=== PATIENT | female | born 1960 | race Caucasian/White ===

== ENCOUNTER → 2016-08-24 | Outpatient (CLI) | payer OTHER ==
--- NOTE | 2016-08-24 10:47 | REP ---
MR BRAIN WITHOUT CONTRAST: HISTORY: Ataxia. Punctate areas of increased signal intensity on T2-weighted images are present in the periventricular and subcortical white matter. This represents small vessel ischemic disease. There is no intraparenchymal hemorrhage, infarct, mass or midline shift. The sella turcica is partially empty. The ventricular system and cortical sulci are dilated consistent with minimal volume loss. There is no extracerebral collection. Mucosal thickening is present in the ethmoid and left maxillary sinuses. IMPRESSION: 1. Small vessel ischemic disease. 2. Minimal volume loss. Signed by Donnie Kee MD 08/24/2016 10:50 A
== END ==
LOC: M RAD 09:08
PROVIDERS: ATTEND Nurse Practitioner Adult Health
DX: R27.0 Ataxia, unspecified (principal); R29.6 Repeated falls; N31.9 Neuromuscular dysfunction of bladder, unspecified; R20.8 Other disturbances of skin sensation; R20.0 Anesthesia of skin

== ENCOUNTER → 2016-08-29 | Outpatient (REF) | payer OTHER ==
[2016-08-29 11:41] LABS: BLOOD UREA NITROGEN 12 MG/DL (7-18); CREATININE FOR GFR 0.89 MG/DL (0.55-1.02); GLOMERULAR FILTRATION RATE > 60.0 (>51)
[2016-08-29 11:48] LABS: VITAMIN B12 LEVEL 449 PG/ML
[2016-08-29 11:49] LABS: FOLATE > 24.0 NG/ML
[2016-09-01 00:08] LABS: Lyme Disease IgG/IgM Antibodie <0.91 ISR (0.00-0.90); Lyme Disease IgM Ab Quantitati <0.80 index (0.00-0.79); SJOGREN'S ANTI SS-A <0.2 AI (0.0-0.9); SJOGREN'S ANTI SS-B <0.2 AI (0.0-0.9)
== END ==
LOC: M LABNEURO 11:03
PROVIDERS: ATTEND Psychiatry & Neurology Neurology
DX: G35 Multiple sclerosis (principal); E11.9 Type 2 diabetes mellitus without complications; G36.0 Neuromyelitis optica [Devic]

== ENCOUNTER → 2016-11-06 | Outpatient (CLI) | payer OTHER ==
--- NOTE | 2016-11-06 10:22 | REP ---
CERVICAL SPINE: Three AP and lateral views of the cervical spine performed. There is no compression fracture. There is normal alignment and cervical lordosis. There is no prevertebral soft tissue swelling. There is mild spurring, disc space narrowing and subchondral sclerosis at C6-7. There is slight narrowing at C5-6 disc space. There are mild vascular calcifications in the left neck soft tissues, likely in the carotid artery. IMPRESSION: Degenerative changes as discussed above, most significantly at C6-7 level. Signed by Elvis Delgado MD 11/06/2016 04:22 P
--- NOTE | 2016-11-06 10:39 | REP ---
LUMBAR SPINE SERIES: Partial three views. HISTORY: Degenerative disc disease. No comparison imaging. FINDINGS: Lumbar vertebral body heights are preserved. Alignment is normal. There is mild disc space narrowing at the L4-5 disc space level consistent with some degree of degenerative disc disease. Pedicles and posterior elements are intact. Psoas margins and flank stripes are intact. There is no evidence of spondylolysis or spondylolisthesis. SI joints are unremarkable. Visualized bowel gas pattern is normal. IMPRESSION: Mild degenerative disc narrowing at L4-5. Otherwise negative. Signed by Jovan Valdes MD 11/06/2016 02:54 P
== END ==
LOC: M SMT 09:28
PROVIDERS: ATTEND Internal Medicine
DX: M51.36 Other intervertebral disc degeneration, lumbar region (principal); M50.322 Other cervical disc degeneration at C5-C6 level; M50.323 Other cervical disc degeneration at C6-C7 level

== ENCOUNTER → 2016-11-27 | Outpatient (CLI) | payer OTHER, MEDICAID ==
--- NOTE | 2016-11-27 10:24 | REPMRS ---
Patient History The patient states she has not had a clinical breast exam in over a year. Baseline manmmogram. Patient is postmenopausal. No known family history of cancer. Digital Woman Screen Mammo: November 27, 2016 - Exam #: [id number] Bilateral CC and MLO view(s) were taken. Technologist: Jayla Hinkle Technologist FINDINGS: There are scattered fibroglandular densities. There is no evidence of cancer on this mammogram. ASSESSMENT: BI-RADS/ACR category 2 mammogram. Benign finding(s). Recommendation Routine screening mammogram of both breasts in 1 year (for women over age 40). This mammogram was interpreted with the aid of an FDA-approved computer-aided dectection system. Electronically Signed By: Elvis Delgado MD 11/27/16 1024
--- NOTE | 2016-11-28 12:12 | DEXA ---
AP SPINE L1 - L4 0.796 -3.2 -2.9 LT FEMUR TOTAL 0.673 -2.7 -2.4 RT FEMUR TOTAL 0.669 -2.7 -2.4 TOTAL BODY TOTAL OTHER DUAL FEMUR FRAX* ASSESSMENT Risk factors: History of adult fracture, current smoker. 10 year probability of fracture Major osteoporotic fracture 18.5 % Hip fracture 6.4 % COMMENTS: There is osteoporosis of the spine and hips. FOLLOW-UP: Recommendation for the next bone density exam: 2 years. [facility]
== END ==
LOC: M WHC 09:43
PROVIDERS: ATTEND Nurse Practitioner Adult Health
DX: Z12.31 Encounter for screening mammogram for malignant neoplasm of breast (principal); M81.0 Age-related osteoporosis without current pathological fracture; Z78.0 Asymptomatic menopausal state

== ENCOUNTER → 2016-12-17 | Outpatient (REF) | payer OTHER, MEDICAID | LOC: M SMT 12:46 | PROVIDERS: ATTEND Nurse Practitioner Women's Health | DX: R33.9 Retention of urine, unspecified (principal) ==

== ENCOUNTER → 2017-01-03 | Outpatient (REF) | payer OTHER | LOC: M SMT 12:48 | PROVIDERS: ATTEND Nurse Practitioner Women's Health | DX: N39.0 Urinary tract infection, site not specified (principal) ==

== ENCOUNTER → 2017-02-14 | Outpatient (REF) | payer OTHER | LOC: M SMT 12:49 | PROVIDERS: ATTEND Specialist | DX: Z87.440 Personal history of urinary (tract) infections (principal) ==

== ENCOUNTER → 2017-10-23 | Outpatient (REF) | payer OTHER, SELFPAY ==
[2017-10-23 18:52] LABS: APPEARANCE, URINE HAZY (CLEAR); BACTERIA, URINE AUTO 1+ (NEGATIVE); BILIRUBIN, URINE AUTO NEGATIVE (NEGATIVE); BLOOD, URINE BLOOD NEGATIVE (NEGATIVE); COLOR, URINE YELLOW (YELLOW); GLUCOSE, URINE (UA) AUTO NEGATIVE (NEGATIVE); KETONE, URINE AUTO TRACE mg/dL (NEGATIVE); LEUKOCYTE ESTERASE, URINE AUTO TRACE (NEGATIVE); MUCUS, URINE SMALL (NEGATIVE); NITRITE, URINE AUTO NEGATIVE (NEGATIVE); PROTEIN, URINE AUTO NEGATIVE (NEGATIVE); RBC, URINE AUTO 3 /HPF (0-3); SPECIFIC GRAVITY URINE AUTO 1.018 (1.002-1.035); SQUAMOUS EPITHELIAL CELL UR AU 0 /HPF (0-6); UROBILINOGEN, URINE AUTO 0.2 mg/dL (0.0-2.0); WBC, URINE AUTO 14 /HPF (0-3)
== END ==
LOC: M SMT 17:33
DX: R30.0 Dysuria (principal)
CPT/HCPCS: 81001

== ENCOUNTER → 2019-04-13 | Outpatient (REF) | payer OTHER ==
[2019-04-13 13:52] LABS: ALBUMIN 3.6 GM/DL (3.2-5.2); ALT/SGPT 18 U/L (12-78); BILIRUBIN,TOTAL 0.3 MG/DL (0.2-1.0); BLOOD UREA NITROGEN 9 MG/DL (7-18); CARBON DIOXIDE LEVEL 27 MEQ/L (21-32); CHLORIDE LEVEL 110 MEQ/L (98-107); CREATININE FOR GFR 0.87 MG/DL (0.55-1.30); GLOMERULAR FILTRATION RATE > 60.0 (>51); GLUCOSE, FASTING 87 MG/DL (70-100); POTASSIUM SERUM 4.7 MEQ/L (3.5-5.1); SODIUM LEVEL 142 MEQ/L (136-145); TOTAL PROTEIN 6.8 GM/DL (6.4-8.2)
== END ==
LOC: M LABNEURO 10:26
PROVIDERS: ATTEND Psychiatry & Neurology Neurology
DX: N18.9 Chronic kidney disease, unspecified (principal)

== ENCOUNTER → 2020-03-08 | Outpatient (REF) | payer OTHER ==
[2020-04-11 06:26] LABS: APPEARANCE, URINE CLEAR (CLEAR); BACTERIA, URINE AUTO NEGATIVE (NEGATIVE); BILIRUBIN, URINE AUTO NEGATIVE (NEGATIVE); BLOOD, URINE BLOOD NEGATIVE (NEGATIVE); COLOR, URINE YELLOW (YELLOW); GLUCOSE, URINE (UA) AUTO NEGATIVE (NEGATIVE); KETONE, URINE AUTO NEGATIVE (NEGATIVE); LEUKOCYTE ESTERASE, URINE AUTO NEGATIVE (NEGATIVE); NITRITE, URINE AUTO NEGATIVE (NEGATIVE); PROTEIN, URINE AUTO NEGATIVE (NEGATIVE); RBC, URINE AUTO 0 /HPF (0-3); SPECIFIC GRAVITY URINE AUTO 1.011 (1.002-1.035); SQUAMOUS EPITHELIAL CELL UR AU 0 /HPF (0-6); UROBILINOGEN, URINE AUTO 0.2 mg/dL (0.0-2.0); WBC, URINE AUTO 0 /HPF (0-3)
== END ==
LOC: M SMT 10:38
PROVIDERS: ATTEND Nurse Practitioner Women's Health
DX: N39.0 Urinary tract infection, site not specified (principal)

== ENCOUNTER → 2020-09-02 | Outpatient (REF) | payer OTHER ==
[2020-09-02 17:58] LABS: APPEARANCE, URINE CLEAR (CLEAR); BACTERIA, URINE AUTO NEGATIVE (NEGATIVE); BILIRUBIN, URINE AUTO NEGATIVE (NEGATIVE); BLOOD, URINE BLOOD NEGATIVE (NEGATIVE); COLOR, URINE YELLOW (YELLOW); GLUCOSE, URINE (UA) AUTO NEGATIVE (NEGATIVE); KETONE, URINE AUTO NEGATIVE (NEGATIVE); LEUKOCYTE ESTERASE, URINE AUTO NEGATIVE (NEGATIVE); MUCUS, URINE SMALL (NEGATIVE); NITRITE, URINE AUTO NEGATIVE (NEGATIVE); PROTEIN, URINE AUTO NEGATIVE (NEGATIVE); RBC, URINE AUTO 1 /HPF (0-3); SPECIFIC GRAVITY URINE AUTO 1.013 (1.002-1.035); SQUAMOUS EPITHELIAL CELL UR AU 1 /HPF (0-6); UROBILINOGEN, URINE AUTO 0.2 mg/dL (0.0-2.0); WBC, URINE AUTO 3 /HPF (0-3)
== END ==
LOC: M SMT 16:49
PROVIDERS: ATTEND Nurse Practitioner Women's Health
DX: N39.0 Urinary tract infection, site not specified (principal)

== ENCOUNTER → 2021-02-27 | Outpatient (CLI) | payer OTHER ==
[2021-02-27 14:22] LABS: BASO # 0.1 10^3/uL (0.0-0.2); BASO % 0.7 % (0.0-1.0); EOS # 0.1 10^3/uL (0.0-0.5); EOS % 1.4 % (0.0-3.0); HEMATOCRIT 43.1 % (36.0-47.0); HEMOGLOBIN 14.5 g/dl (12.0-15.5); LYMPH # 3.2 10^3/uL (1.5-5.0); LYMPH % 31.6 % (24.0-44.0); MEAN CORPUSCULAR HEMOGLOBIN 33.2 pg (27.0-33.0); MEAN CORPUSCULAR HGB CONC 33.6 g/dl (32.0-36.5); MEAN CORPUSCULAR VOLUME 98.6 fl (80.0-96.0); MONO # 0.5 10^3/uL (0.0-0.8); MONO % 5.2 % (2.0-8.0); NEUTROPHILS # 6.1 10^3/uL (1.5-8.5); NEUTROPHILS % 60.7 % (36.0-66.0); PLATELET COUNT, AUTOMATED 302 10^3/uL (150-450); RED BLOOD COUNT 4.37 10^6/uL (4.00-5.40); WHITE BLOOD COUNT 10.1 10^3/uL (4.0-10.0)
[2021-02-27 14:39] LABS: RHEUMATOID FACTOR QUANT < 10.0 IU/ML (<15.0); TOTAL PROTEIN 6.9 GM/DL (6.4-8.2)
[2021-02-27 14:48] LABS: VITAMIN B12 LEVEL 428 PG/ML
[2021-02-27 15:33] LABS: FOLATE 19.7 NG/ML
[2021-02-27 15:44] LABS: ERYTHROCYTE SEDIMENTATION RATE 19 mm/hr (0-30)
[2021-02-28 12:45] LABS: ALBUMIN 3.92 GM/DL (3.29-5.55); ALBUMIN % 56.8 % (55.8-66.1); ALPHA-1-GLOBULINS 0.35 GM/DL (0.17-0.41); ALPHA-2-GLOBULINS 0.77 GM/DL (0.42-0.99); ALPHA-2-GLOBULINS % 11.1 % (7.1-11.8); BETA-1-GLOBULINS 0.38 GM/DL (0.28-0.60); BETA-1-GLOBULINS % 5.5 % (4.7-7.2); BETA-2-GLOBULINS 0.39 GM/DL (0.19-0.55); BETA-2-GLOBULINS % 5.6 % (3.2-6.5)
== END ==
LOC: M LAB 12:55
PROVIDERS: ATTEND Psychiatry & Neurology Neurology
DX: E11.9 Type 2 diabetes mellitus without complications (principal); G62.9 Polyneuropathy, unspecified; M19.90 Unspecified osteoarthritis, unspecified site; M54.2 Cervicalgia; M54.9 Dorsalgia, unspecified

== ENCOUNTER 2021-09-11 15:33 | Emergency (ER) | payer OTHER ==
[~2021-09-11] VITALS: Ht 160 cm; Wt 75.0 kg
[2021-09-11] MEDS ORDERED: TRAZ-189 (16:28)
[2021-09-11] MEDS ORDERED: DULO1CAP6 (16:28)
[2021-09-11] MEDS ORDERED: HYDR-3363 (16:28)
[2021-09-11] MEDS ORDERED: NITR-67 (16:28)
[2021-09-11] MEDS ORDERED: OMEP40CA5 (16:28)
[2021-09-11] MEDS ORDERED: TIZA10TA (16:28)
[2021-09-11] MEDS ORDERED: ALEN70TA82 (16:28)
[2021-09-11] MEDS ORDERED: NORCO, ANEXSIA 5/325MG TABLET (HYDROcodone/ACETAMINOPHEN) PO ONE (17:45)
[2021-09-11] MEDS ORDERED: HYDR-3713 PO (17:45)
[2021-09-11 18:54] VITALS: BP 150/82
== END 2021-09-11 18:55 | disposition home or self-care (01) ==
LOC: M ED 15:33
DX: S42.214A Unspecified nondisplaced fracture of surgical neck of right humerus, initial encounter for closed fracture (principal); W00.9XXA Unspecified fall due to ice and snow, initial encounter; Y92.099 Unspecified place in other non-institutional residence as the place of occurrence of the external cause; Y93.9 Activity, unspecified; Y99.9 Unspecified external cause status; M81.0 Age-related osteoporosis without current pathological fracture; K21.9 Gastro-esophageal reflux disease without esophagitis; F41.9 Anxiety disorder, unspecified; F17.200 Nicotine dependence, unspecified, uncomplicated

== ENCOUNTER → 2021-09-20 | Outpatient (CLI) | payer OTHER ==
[~2021-09-20] MED LIST: ALEN70TA82; DULO1CAP6; HYDR-3363; HYDR-3713 PO; NITR-67; OMEP40CA5; TIZA10TA; TRAZ-189
== END ==
LOC: M SOG 10:14
PROVIDERS: ATTEND Orthopaedic Surgery Hand Surgery
DX: S42.221A 2-part displaced fracture of surgical neck of right humerus, initial encounter for closed fracture (principal); M85.811 Other specified disorders of bone density and structure, right shoulder; X58.XXXA Exposure to other specified factors, initial encounter; Y92.9 Unspecified place or not applicable; Y93.9 Activity, unspecified; Y99.9 Unspecified external cause status

== ENCOUNTER → 2021-10-03 | Outpatient (CLI) | payer OTHER | LOC: M SOG 08:21 | PROVIDERS: ATTEND Orthopaedic Surgery Hand Surgery | DX: S42.201D Unspecified fracture of upper end of right humerus, subsequent encounter for fracture with routine healing (principal) ==

== ENCOUNTER → 2022-01-30 | Outpatient (REF) | payer OTHER ==
[2022-01-30 17:33] LABS: APPEARANCE, URINE HAZY (CLEAR); BACTERIA, URINE AUTO 1+ (NEGATIVE); BILIRUBIN, URINE AUTO NEGATIVE (NEGATIVE); BLOOD, URINE BLOOD NEGATIVE (NEGATIVE); COLOR, URINE YELLOW (YELLOW); GLUCOSE, URINE (UA) AUTO NEGATIVE (NEGATIVE); KETONE, URINE AUTO NEGATIVE (NEGATIVE); LEUKOCYTE ESTERASE, URINE AUTO 3+ (NEGATIVE); NITRITE, URINE AUTO NEGATIVE (NEGATIVE); PROTEIN, URINE AUTO NEGATIVE (NEGATIVE); RBC, URINE AUTO 1 /HPF (0-3); SPECIFIC GRAVITY URINE AUTO 1.005 (1.002-1.035); SQUAMOUS EPITHELIAL CELL UR AU 0 /HPF (0-6); UROBILINOGEN, URINE AUTO 0.2 mg/dL (0.0-2.0); WBC, URINE AUTO 55 /HPF (0-3)
== END ==
LOC: M SMT 16:59
PROVIDERS: ATTEND Nurse Practitioner Women's Health
DX: N30.00 Acute cystitis without hematuria (principal)

== ENCOUNTER → 2022-02-14 | Outpatient (REF) | payer OTHER ==
[2022-02-14 17:27] LABS: APPEARANCE, URINE CLEAR (CLEAR); BACTERIA, URINE AUTO NEGATIVE (NEGATIVE); BILIRUBIN, URINE AUTO NEGATIVE (NEGATIVE); BLOOD, URINE BLOOD NEGATIVE (NEGATIVE); CALCIUM OXALATE CRYSTALS SMALL; COLOR, URINE YELLOW (YELLOW); GLUCOSE, URINE (UA) AUTO NEGATIVE (NEGATIVE); KETONE, URINE AUTO NEGATIVE (NEGATIVE); LEUKOCYTE ESTERASE, URINE AUTO NEGATIVE (NEGATIVE); NITRITE, URINE AUTO NEGATIVE (NEGATIVE); PROTEIN, URINE AUTO NEGATIVE (NEGATIVE); RBC, URINE AUTO 0 /HPF (0-3); SPECIFIC GRAVITY URINE AUTO 1.012 (1.002-1.035); SQUAMOUS EPITHELIAL CELL UR AU 0 /HPF (0-6); UROBILINOGEN, URINE AUTO 0.2 mg/dL (0.0-2.0); WBC, URINE AUTO 1 /HPF (0-3)
== END ==
LOC: M SMT 16:37
PROVIDERS: ATTEND Nurse Practitioner Women's Health
DX: Z87.440 Personal history of urinary (tract) infections (principal)

== ENCOUNTER → 2022-07-17 | Outpatient (REF) | payer OTHER ==
[2022-07-17 14:52] LABS: APPEARANCE, URINE MANUAL CLEAR (CLEAR); COLOR, URINE MANUAL YELLOW (YELLOW)
[2022-07-17 14:53] LABS: BILIRUBIN, URINE MANUAL NEGATIVE (NEGATIVE); BLOOD URINE MANUAL TRACE (NEGATIVE); GLUCOSE, URINE (UA) MANUAL NEGATIVE (NEGATIVE); KETONE, URINE MANUAL NEGATIVE (NEGATIVE); LEUKOCYTE ESTERASE, URINE MAN POSITIVE (NEGATIVE); NITRITE, URINE MANUAL POSITIVE (NEGATIVE); PROTEIN, URINE MANUAL TRACE mg/dL (NEGATIVE); SPECIFIC GRAVITY,URINE MANUAL 1.015 (1.002-1.035); UROBILINOGEN, URINE MANUAL NORMAL (NORMAL)
[2022-07-17 15:23] LABS: CALCIUM OXALATE CRYSTALS,URINE SMALL AMOUNT /hpf; SQUAMOUS EPITHELIAL CELL URINE SMALL AMOUNT /hpf (SMALL AMT); WBC, URINE 40-50 /hpf (0-3)
[2022-07-17 15:24] LABS: BACTERIA, URINE LARGE AMOUNT; HYALINE CAST, URINE NONE SEEN /lpf (0-1)
== END ==
LOC: M SMT 12:58
PROVIDERS: ATTEND Nurse Practitioner Women's Health
DX: R30.0 Dysuria (principal)

== ENCOUNTER → 2022-08-07 | Outpatient (REF) | payer OTHER ==
[2022-08-07 18:48] LABS: APPEARANCE, URINE MANUAL HAZY (CLEAR); BILIRUBIN, URINE MANUAL NEGATIVE (NEGATIVE); BLOOD URINE MANUAL NEGATIVE (NEGATIVE); COLOR, URINE MANUAL YELLOW (YELLOW); GLUCOSE, URINE (UA) MANUAL NEGATIVE (NEGATIVE); KETONE, URINE MANUAL NEGATIVE (NEGATIVE); LEUKOCYTE ESTERASE, URINE MAN TRACE (NEGATIVE); NITRITE, URINE MANUAL NEGATIVE (NEGATIVE); PROTEIN, URINE MANUAL TRACE mg/dL (NEGATIVE); UROBILINOGEN, URINE MANUAL NORMAL (NORMAL)
[2022-08-07 19:17] LABS: AMORPHOUS SEDIMENT, URINE LARGE AMOUNT (NEGATIVE); BACTERIA, URINE NONE SEEN; HYALINE CAST, URINE NONE SEEN /lpf (0-1); RBC, URINE 0-1 /hpf (0-3); SQUAMOUS EPITHELIAL CELL URINE SMALL AMOUNT /hpf (SMALL AMT)
== END ==
LOC: M SMT 17:13
PROVIDERS: ATTEND Nurse Practitioner Women's Health
DX: Z87.440 Personal history of urinary (tract) infections (principal)

== ENCOUNTER → 2022-08-21 | Outpatient (CLI) | payer OTHER | LOC: M RAD 10:18 | PROVIDERS: ATTEND Nurse Practitioner Women's Health | DX: R33.9 Retention of urine, unspecified (principal); Z87.440 Personal history of urinary (tract) infections; Z90.5 Acquired absence of kidney ==

== ENCOUNTER → 2022-08-24 | Outpatient (REF) | payer OTHER ==
[2022-08-24 18:09] LABS: APPEARANCE, URINE MANUAL CLEAR (CLEAR); COLOR, URINE MANUAL LT YELLOW (YELLOW)
[2022-08-24 18:10] LABS: BILIRUBIN, URINE MANUAL NEGATIVE (NEGATIVE); GLUCOSE, URINE (UA) MANUAL NEGATIVE (NEGATIVE); KETONE, URINE MANUAL NEGATIVE (NEGATIVE); NITRITE, URINE MANUAL NEGATIVE (NEGATIVE); PROTEIN, URINE MANUAL NEGATIVE (NEGATIVE); SPECIFIC GRAVITY,URINE MANUAL 1.005 (1.002-1.035); UROBILINOGEN, URINE MANUAL NORMAL (NORMAL)
[2022-08-24 18:28] LABS: BLOOD URINE MANUAL NEGATIVE (NEGATIVE); LEUKOCYTE ESTERASE, URINE MAN NEGATIVE (NEGATIVE)
== END ==
LOC: M SMT 16:49
PROVIDERS: ATTEND Urology
DX: Z87.440 Personal history of urinary (tract) infections (principal)

== ENCOUNTER → 2022-12-31 | Outpatient (REF) | payer OTHER ==
[2022-12-31 14:48] LABS: APPEARANCE, URINE HAZY (CLEAR); BACTERIA, URINE AUTO 1+ (NEGATIVE); BILIRUBIN, URINE AUTO NEGATIVE (NEGATIVE); BLOOD, URINE BLOOD 1+ (NEGATIVE); COLOR, URINE YELLOW (YELLOW); GLUCOSE, URINE (UA) AUTO NEGATIVE (NEGATIVE); KETONE, URINE AUTO NEGATIVE (NEGATIVE); LEUKOCYTE ESTERASE, URINE AUTO 3+ (NEGATIVE); NITRITE, URINE AUTO POSITIVE (NEGATIVE); PROTEIN, URINE AUTO NEGATIVE (NEGATIVE); RBC, URINE AUTO 2 /HPF (0-3); SPECIFIC GRAVITY URINE AUTO 1.008 (1.002-1.035); SQUAMOUS EPITHELIAL CELL UR AU 0 /HPF (0-6); UROBILINOGEN, URINE AUTO 0.2 mg/dL (0.0-2.0); WBC, URINE AUTO 78 /HPF (0-3)
== END ==
LOC: M SMT 13:00
PROVIDERS: ATTEND Physician Assistant
DX: R30.0 Dysuria (principal)

== ENCOUNTER → 2023-03-08 | Outpatient (REF) | payer OTHER ==
[2023-03-08 18:33] LABS: APPEARANCE, URINE CLOUDY (CLEAR); BACTERIA, URINE AUTO 2+ (NEGATIVE); BILIRUBIN, URINE AUTO NEGATIVE (NEGATIVE); BLOOD, URINE BLOOD NEGATIVE (NEGATIVE); COLOR, URINE AMBER (YELLOW); GLUCOSE, URINE (UA) AUTO NEGATIVE (NEGATIVE); KETONE, URINE AUTO TRACE mg/dL (NEGATIVE); LEUKOCYTE ESTERASE, URINE AUTO 3+ (NEGATIVE); MUCUS, URINE SMALL (NEGATIVE); NITRITE, URINE AUTO POSITIVE (NEGATIVE); PROTEIN, URINE AUTO NEGATIVE (NEGATIVE); RBC, URINE AUTO 4 /HPF (0-3); SPECIFIC GRAVITY URINE AUTO 1.017 (1.002-1.035); SQUAMOUS EPITHELIAL CELL UR AU 1 /HPF (0-6); WBC, URINE AUTO TNTC /HPF (0-3)
== END ==
LOC: M LABSMT 13:51
PROVIDERS: ATTEND Urology
DX: R39.9 Unspecified symptoms and signs involving the genitourinary system (principal)

== ENCOUNTER → 2023-09-12 | Outpatient (REF) | payer OTHER ==
[2023-09-12 14:04] LABS: APPEARANCE, URINE CLEAR (CLEAR); BACTERIA, URINE AUTO NEGATIVE (NEGATIVE); BILIRUBIN, URINE AUTO NEGATIVE (NEGATIVE); BLOOD, URINE BLOOD NEGATIVE (NEGATIVE); COLOR, URINE YELLOW (YELLOW); GLUCOSE, URINE (UA) AUTO NEGATIVE (NEGATIVE); KETONE, URINE AUTO NEGATIVE (NEGATIVE); LEUKOCYTE ESTERASE, URINE AUTO TRACE (NEGATIVE); MUCUS, URINE SMALL (NEGATIVE); NITRITE, URINE AUTO NEGATIVE (NEGATIVE); PROTEIN, URINE AUTO NEGATIVE (NEGATIVE); RBC, URINE AUTO 2 /HPF (0-3); SPECIFIC GRAVITY URINE AUTO 1.016 (1.002-1.035); SQUAMOUS EPITHELIAL CELL UR AU 0 /HPF (0-6); WBC, URINE AUTO 5 /HPF (0-3)
== END ==
LOC: M SMT 13:18
PROVIDERS: ATTEND Urology
DX: R39.9 Unspecified symptoms and signs involving the genitourinary system (principal)

== ENCOUNTER → 2023-10-22 | Outpatient (REF) | payer OTHER ==
[~2023-10-22] MED LIST changes: +ALEN70TA82 PO; +AZEL0.05 OU; +DULO60CA35 PO; +EZET10TA58 PO; +FAMO1TAB11 PO; +GABA-282 PO; +MELO7.5T35 PO; +MULTCHW12 PO; +PANT20TA6 PO; +SYST1SOL4 OU; +TIZA10TA PO; +TRAZ-189 PO
[2023-10-22 17:55] LABS: APPEARANCE, URINE HAZY (CLEAR); BACTERIA, URINE AUTO 1+ (NEGATIVE); BILIRUBIN, URINE AUTO NEGATIVE (NEGATIVE); BLOOD, URINE BLOOD NEGATIVE (NEGATIVE); COLOR, URINE AMBER (YELLOW); GLUCOSE, URINE (UA) AUTO NEGATIVE (NEGATIVE); KETONE, URINE AUTO TRACE mg/dL (NEGATIVE); LEUKOCYTE ESTERASE, URINE AUTO TRACE (NEGATIVE); MUCUS, URINE SMALL (NEGATIVE); NITRITE, URINE AUTO NEGATIVE (NEGATIVE); PROTEIN, URINE AUTO NEGATIVE (NEGATIVE); RBC, URINE AUTO 2 /HPF (0-3); SPECIFIC GRAVITY URINE AUTO 1.023 (1.002-1.035); SQUAMOUS EPITHELIAL CELL UR AU 1 /HPF (0-6); WBC, URINE AUTO 7 /HPF (0-3)
== END ==
LOC: M SMT 17:05
PROVIDERS: ATTEND Urology
DX: N39.0 Urinary tract infection, site not specified (principal)

== ENCOUNTER 2023-10-23 18:14 | Inpatient (IN) | payer OTHER ==
[~2023-10-23] VITALS: Ht 162.6 cm; Wt 62.1 kg
[~2023-10-23 18:14] MED LIST changes: -ALEN70TA82 PO; -AZEL0.05 OU; -DULO60CA35 PO; -EZET10TA58 PO; -FAMO1TAB11 PO; -GABA-282 PO; -MELO7.5T35 PO; -MULTCHW12 PO; -PANT20TA6 PO; -SYST1SOL4 OU; -TIZA10TA PO; -TRAZ-189 PO
[2023-10-23] MEDS: MORPHINE 4 MG/ML 1ML VIAL IV PRN (20:18)
[2023-10-23] MEDS: diazePAM 10MG/2ML SYRINGE IV ONE (20:49)
[2023-10-23 21:08] LABS: BASO # 0.1 10^3/uL (0.0-0.2); BASO % 0.4 % (0.0-1.0); EOS # 0.1 10^3/uL (0.0-0.5); EOS % 0.5 % (0.0-3.0); HEMATOCRIT 39.9 % (36.0-47.0); LYMPH # 2.3 10^3/uL (1.5-5.0); LYMPH % 11.7 % (24.0-44.0); MEAN CORPUSCULAR HEMOGLOBIN 33.8 pg (27.0-33.0); MEAN CORPUSCULAR HGB CONC 35.1 g/dl (32.0-36.5); MEAN CORPUSCULAR VOLUME 96.4 fl (80.0-96.0); MONO # 0.8 10^3/uL (0.0-0.8); MONO % 4.1 % (2.0-8.0); NEUTROPHILS # 15.9 10^3/uL (1.5-8.5); NEUTROPHILS % 82.7 % (36.0-66.0); PLATELET COUNT, AUTOMATED 251 10^3/uL (150-450); RED BLOOD COUNT 4.14 10^6/uL (4.00-5.40); WHITE BLOOD COUNT 19.2 10^3/uL (4.0-10.0)
[2023-10-23 21:19] LABS: INR 1.02; PARTIAL THROMBOPLASTIN TIME 25.8 SECONDS (24.8-34.2); PROTHROMBIN TIME 13.1 SECONDS (12.5-14.5)
[2023-10-23 21:30] LABS: ALBUMIN 3.5 G/DL (3.2-5.2); ALKALINE PHOSPHATASE 66 U/L (46-116); ALT/SGPT 17 U/L (7.0-40); AST/SGOT 24 U/L (<34); BILIRUBIN,DIRECT 0.2 MG/DL (<0.4); BILIRUBIN,TOTAL 0.5 MG/DL (0.3-1.2); BLOOD UREA NITROGEN 15 MG/DL (9-23); CALCIUM LEVEL 8.9 MG/DL (8.3-10.6); CARBON DIOXIDE LEVEL 24 MMOL/L (20-31); CHLORIDE LEVEL 109 MMOL/L (98-107); CREATININE FOR GFR 0.71 MG/DL (0.55-1.30); GLOMERULAR FILTRATION RATE > 60.0 (>45); GLUCOSE, FASTING 108 MG/DL (74-106); POTASSIUM SERUM 3.8 MMOL/L (3.5-5.1); SODIUM LEVEL 138 MMOL/L (136-145); TOTAL PROTEIN 6.5 G/DL (5.7-8.2)
[2023-10-23 21:48] LABS: RSV AMPLIFICATION NEGATIVE (NEGATIVE)
[2023-10-23] MEDS ORDERED: ONDANSETRON 4MG 2ML VIAL IV PRN (22:40)
[2023-10-23] MEDS ORDERED: ALBUTEROL SULFATE 2.5MG/0.5ML INH NEB SOLN NEB PRN (22:40)
[2023-10-23] MEDS ORDERED: PANT20TA6 PO (23:04)
[2023-10-23] MEDS ORDERED: GABA-282 PO (23:04)
[2023-10-23] MEDS ORDERED: ALEN70TA82 PO (23:04)
[2023-10-23] MEDS ORDERED: EZET10TA58 PO (23:04)
[2023-10-23] MEDS ORDERED: FAMO1TAB11 PO (23:04)
[2023-10-23] MEDS ORDERED: TIZA10TA PO (23:04)
[2023-10-23] MEDS ORDERED: DULO60CA35 PO (23:04)
[2023-10-23] MEDS ORDERED: TRAZ-189 PO (23:04)
[2023-10-23] MEDS ORDERED: AZEL0.05 OU (23:04)
[2023-10-23] MEDS ORDERED: MELO7.5T35 PO (23:04)
[2023-10-23] MEDS ORDERED: SYST1SOL4 OU (23:04)
[2023-10-23] MEDS ORDERED: MULTCHW12 PO (23:07)
[2023-10-23] MEDS ORDERED: HOME MED LIST COMPLETE! XX SCH (23:10)
[2023-10-23] MEDS ORDERED: GABAPENTIN 300 MG CAP PO PRN (23:50)
[2023-10-24] MEDS: LR 1,000 ML IV SCH (00:33)
[2023-10-24] MEDS: ALBUTEROL SULFATE 2.5MG/0.5ML INH NEB SOLN NEB SCH (00:33)
[2023-10-24] MEDS: HYDROMORPHONE HCL 0.5 MG/ 0.5 ML SYRINGE IV PRN (00:38)
[2023-10-24] MEDS: ACETAMINOPHEN 500 MG TAB PO SCH (06:00)
[2023-10-24] MEDS ORDERED: CYCLOBENZAPRINE 5MG TABLET PO PRN (07:05)
[2023-10-24] MEDS ORDERED: MORPHINE 4 MG/ML 1ML VIAL IV PRN (07:05)
[2023-10-24] MEDS: LIDOCAINE 5% (LIDODERM) PATCH TD SCH (07:24)
[2023-10-24] MEDS: PANTOPRAZOLE 20 MG TAB PO SCH (07:24)
[2023-10-24 07:37] LABS: TOTAL 25(OH) VITAMIN D 51.8 NG/ML (20.0-100.0)
[2023-10-24] MEDS: KETOROLAC 30 MG/ML 1ML VIAL IV SCH (07:55)
[2023-10-24] MEDS: KETOROLAC 30 MG/ML 1ML VIAL IV PRN (07:56)
[2023-10-24] MEDS ORDERED: PANTOPRAZOLE 20 MG TAB PO SCH (09:00)
[2023-10-24 14:25] VITALS: BP 137/71; TEMP 99.5; O2SAT 95
[2023-10-24] MEDS: PERCOCET 5MG/325MG TAB PO PRN (15:05)
[2023-10-24] MEDS: ceFAZolin 2 GM/D5W 50 ML IV BAG As Ordered ONE (16:13)
[2023-10-24] MEDS: TRANEXAMIC ACID 100 MG/ML 10ML VIAL As Ordered ONE (16:21)
[2023-10-24] MEDS ORDERED: fentaNYL 100 MCG/2 ML INJECTION As Ordered ONE (16:23)
[2023-10-24] MEDS ORDERED: ROCURONIUM BROMIDE 50MG/5ML VIAL As Ordered ONE (16:23)
[2023-10-24] MEDS ORDERED: dexmedeTOMIDine (4MCG/ML)200MCG/50ML BTL (PRECEDEX) As Ordered ONE (16:23)
[2023-10-24] MEDS ORDERED: propofoL 200 MG/20 ML VIAL As Ordered ONE (16:23)
[2023-10-24] MEDS ORDERED: SUGAMMADEX SODIUM 500 MG/5 ML VIAL (BRIDION) As Ordered ONE (16:23)
[2023-10-24] MEDS ORDERED: LIDOCAINE 2% 100MG/5ML SDV (FOR ANES.) As Ordered ONE (16:23)
[2023-10-24] MEDS ORDERED: ONDANSETRON 4MG 2ML VIAL As Ordered ONE (16:23)
[2023-10-24] MEDS ORDERED: MIDAZOLAM INJ 2MG/2ML VIAL As Ordered ONE (16:23)
[2023-10-24] MEDS ORDERED: ACETAMINOPHEN 1000MG 100ML IV BAG As Ordered ONE (16:31)
[2023-10-24] MEDS ORDERED: HYDROmorphone HCL 2MG/ML 1ML VIAL As Ordered ONE (16:41)
[2023-10-24] MEDS ORDERED: ePHEDrine SULFATE 25 MG/5 ML(5MG/ML) SYRINGE As Ordered ONE (18:39)
[2023-10-24] MEDS ORDERED: PHENYLephrine 500MCG 5ML (100MCG/ML) SYRINGE As Ordered ONE (18:39)
[2023-10-24] MEDS: VANCOMYCIN 1000MG/20ML VIAL As Ordered ONE (18:43)
[2023-10-24] MEDS ORDERED: HYDROMORPHONE HCL 0.5 MG/ 0.5 ML SYRINGE IV PRN (18:55)
[2023-10-24] MEDS ORDERED: ONDANSETRON 4MG 2ML VIAL IV PRN (18:55)
[2023-10-24] MEDS ORDERED: oxyCODONE 5MG TAB PO PRN (18:55)
[2023-10-24] MEDS ORDERED: LR 1,000 ML IV SCH (18:55)
[2023-10-24] MEDS ORDERED: fentaNYL 100 MCG/2 ML INJECTION IV PRN (18:55)
[2023-10-24 20:00] VITALS: BP 120/62; TEMP 98.4; O2SAT 86
[2023-10-24] MEDS: EZETIMIBE 10MG TABLET (ZETIA) PO SCH (20:21)
[2023-10-24] MEDS: traZODone 100 MG TAB PO SCH (20:22)
[2023-10-24] MEDS: DULoxetine 30MG CAPSULE (CYMBALTA) PO SCH (20:22)
[2023-10-24 20:30] VITALS: BP 117/73; TEMP 98; O2SAT 92
[2023-10-24 21:00] VITALS: BP 118/68; TEMP 98.2; O2SAT 95
[2023-10-24 22:00] VITALS: BP 106/60; TEMP 98.1; O2SAT 94
[2023-10-24] MEDS: ceFAZolin SOD 2 GM in IV 1 EA IV SCH (23:31)
[2023-10-25] VITALS (9 sets, daily range): BP systolic 88–133; BP diastolic 54–68; TEMP 97.1–99.3; O2SAT 92–99
[2023-10-25 08:34] LABS: HEMATOCRIT 28.4 % (36.0-47.0); MEAN CORPUSCULAR HEMOGLOBIN 33.8 pg (27.0-33.0); MEAN CORPUSCULAR HGB CONC 33.1 g/dl (32.0-36.5); MEAN CORPUSCULAR VOLUME 102.2 fl (80.0-96.0); PLATELET COUNT, AUTOMATED 169 10^3/uL (150-450); RED BLOOD COUNT 2.78 10^6/uL (4.00-5.40); WHITE BLOOD COUNT 12.2 10^3/uL (4.0-10.0)
[2023-10-25 08:35] LABS: HEMOGLOBIN 9.4 g/dl (12.0-15.5)
[2023-10-25 08:48] LABS: BLOOD UREA NITROGEN 15 MG/DL (9-23); CALCIUM LEVEL 7.7 MG/DL (8.3-10.6); CARBON DIOXIDE LEVEL 28 MMOL/L (20-31); CHLORIDE LEVEL 107 MMOL/L (98-107); CREATININE FOR GFR 0.67 MG/DL (0.55-1.30); GLOMERULAR FILTRATION RATE > 60.0 (>45); GLUCOSE, FASTING 135 MG/DL (74-106); POTASSIUM SERUM 3.8 MMOL/L (3.5-5.1); SODIUM LEVEL 141 MMOL/L (136-145)
[2023-10-25] MEDS ORDERED: RIVAROXABAN 10MG TAB (XARELTO) PO SCH (09:00)
[2023-10-25 12:37] LABS: HEMATOCRIT 30.3 % (36.0-47.0); HEMOGLOBIN 10.2 g/dl (12.0-15.5); MEAN CORPUSCULAR HGB CONC 33.7 g/dl (32.0-36.5); PLATELET COUNT, AUTOMATED 189 10^3/uL (150-450); WHITE BLOOD COUNT 13.6 10^3/uL (4.0-10.0)
[2023-10-25] MEDS: ceFAZolin SOD 2 GM in IV 1 EA IV SCH (13:20)
[2023-10-25] MEDS: LR 1,000 ML IV ONE (17:45)
[2023-10-25 22:32] LABS: HEMATOCRIT 25.2 % (36.0-47.0); HEMOGLOBIN 8.5 g/dl (12.0-15.5)
[2023-10-26 02:00] VITALS: BP 105/58; TEMP 98.6; O2SAT 97
[2023-10-26] MEDS: tiZANidine 4 MG TAB PO PRN (02:19)
[2023-10-26] MEDS: MYCOLOG CREAM 15GM (NYSTATIN/TRIAMCINOLONE) EXT SCH (02:19)
[2023-10-26 05:39] VITALS: BP 109/58; TEMP 98.8; O2SAT 94
[2023-10-26 06:18] LABS: HEMOGLOBIN 8.7 g/dl (12.0-15.5); MEAN CORPUSCULAR HEMOGLOBIN 34.1 pg (27.0-33.0); MEAN CORPUSCULAR HGB CONC 33.5 g/dl (32.0-36.5); PLATELET COUNT, AUTOMATED 159 10^3/uL (150-450); RED BLOOD COUNT 2.55 10^6/uL (4.00-5.40); WHITE BLOOD COUNT 9.9 10^3/uL (4.0-10.0)
[2023-10-26 06:40] LABS: ALBUMIN 2.3 G/DL (3.2-5.2); ALKALINE PHOSPHATASE 48 U/L (46-116); ALT/SGPT 10 U/L (7.0-40); AST/SGOT 30 U/L (<34); BILIRUBIN,TOTAL 0.4 MG/DL (0.3-1.2); BLOOD UREA NITROGEN 10 MG/DL (9-23); CALCIUM LEVEL 7.9 MG/DL (8.3-10.6); CARBON DIOXIDE LEVEL 30 MMOL/L (20-31); CHLORIDE LEVEL 109 MMOL/L (98-107); CREATININE FOR GFR 0.71 MG/DL (0.55-1.30); GLOMERULAR FILTRATION RATE > 60.0 (>45); GLUCOSE, FASTING 92 MG/DL (74-106); MAGNESIUM LEVEL 1.7 MG/DL (1.8-2.4); POTASSIUM SERUM 4.1 MMOL/L (3.5-5.1); SODIUM LEVEL 142 MMOL/L (136-145); TOTAL PROTEIN 4.6 G/DL (5.7-8.2)
[2023-10-26 08:25] LABS: PERCENT SATURATION 8.2 % (13.2-45.0)
[2023-10-26 08:28] LABS: FOLATE 15.58 NG/ML (>5.4)
[2023-10-26] MEDS ORDERED: LIDO5TD TD (09:30)
[2023-10-26] MEDS ORDERED: OXYC1TAB23 PO (09:30)
[2023-10-26] MEDS ORDERED: BACTDSTA PO (09:30)
[2023-10-26] MEDS ORDERED: FERR325T3 PO (09:33)
[2023-10-26] MEDS ORDERED: ASPI-655 PO (09:33)
[2023-10-26 09:57] LABS: FERRITIN 183.2 NG/ML (7.3-270.7)
[2023-10-26] MEDS: BACTRIM 160MG/800MG DS TAB PO SCH (10:06)
[2023-10-26] MEDS: MAGNESIUM OXIDE 400MG TAB (MAG-OX) PO SCH (10:07)
[2023-10-26 10:39] VITALS: BP 105/60; TEMP 98.8; O2SAT 96
[2023-10-26 10:45] VITALS: BP 105/59; TEMP 99; O2SAT 92
[2023-10-26 10:53] VITALS: BP 101/56; TEMP 98.4; O2SAT 92
[2023-10-26 11:41] VITALS: BP 107/65; TEMP 98.8; O2SAT 97
[2023-10-26] MEDS: FERRIC CARBOXYMALTOSE INJ 750 MG, VIAL MATE ADAPTER 1 EACH in NS 250 ML IV ONE (12:47)
[2023-10-26 14:04] LABS: HEMATOCRIT 29.7 % (36.0-47.0); MEAN CORPUSCULAR HGB CONC 33.7 g/dl (32.0-36.5); PLATELET COUNT, AUTOMATED 143 10^3/uL (150-450); RED BLOOD COUNT 3.03 10^6/uL (4.00-5.40); WHITE BLOOD COUNT 10.9 10^3/uL (4.0-10.0)
== END 2023-10-26 15:03 | disposition home health service (06) | DRG 301 ==
LOC: M ED 18:14 → EDBD 18:14 → M ED INP 22:38 → ENRESERV 10-24 13:47 → M MSPAV 10-24 14:19
PROVIDERS: ADMIT Internal Medicine; ATTEND Student in an Organized Health Care Education/Training Program
PROC: 0SRR0J9 Replacement of Right Hip Joint, Femoral Surface with Synthetic Substitute, Cemented, Open Approach (ICD-10-PCS; 2023-10-24)
PROC: 30233N1 Transfusion of Nonautologous Red Blood Cells into Peripheral Vein, Percutaneous Approach (ICD-10-PCS; principal; 2023-10-26)
DX: S72.001A Fracture of unspecified part of neck of right femur, initial encounter for closed fracture (principal); N31.2 Flaccid neuropathic bladder, not elsewhere classified; D62 Acute posthemorrhagic anemia; E78.5 Hyperlipidemia, unspecified; F17.210 Nicotine dependence, cigarettes, uncomplicated; M81.0 Age-related osteoporosis without current pathological fracture; N39.0 Urinary tract infection, site not specified; B96.1 Klebsiella pneumoniae [K. pneumoniae] as the cause of diseases classified elsewhere; L29.0 Pruritus ani; T49.0X5A Adverse effect of local antifungal, anti-infective and anti-inflammatory drugs, initial encounter; M54.9 Dorsalgia, unspecified; K21.9 Gastro-esophageal reflux disease without esophagitis; W01.0XXA Fall on same level from slipping, tripping and stumbling without subsequent striking against object, initial encounter; Y92.9 Unspecified place or not applicable; Y93.K1 Activity, walking an animal; G89.29 Other chronic pain; G47.00 Insomnia, unspecified; Z79.899 Other long term (current) drug therapy; Z90.5 Acquired absence of kidney; Z11.52 Encounter for screening for COVID-19

== ENCOUNTER → 2023-12-04 | Outpatient (CLI) | payer OTHER ==
[~2023-12-04] MED LIST changes: +ALEN70TA82 PO; +ASPI-655 PO; +AZEL0.05 OU; +BACTDSTA PO; +DULO60CA35 PO; +EZET10TA58 PO; +FAMO1TAB11 PO; +FERR325T3 PO; +GABA-282 PO; +LIDO5TD TD; +MELO7.5T35 PO; +MULTCHW12 PO; +OXYC1TAB23 PO; +PANT20TA6 PO; +SYST1SOL4 OU; +TIZA10TA PO; +TRAZ-189 PO
== END ==
LOC: M SOG 11:13
PROVIDERS: ATTEND Physician Assistant
DX: S72.001D Fracture of unspecified part of neck of right femur, subsequent encounter for closed fracture with routine healing (principal); Z96.641 Presence of right artificial hip joint

== ENCOUNTER → 2024-01-28 | Outpatient (REF) | payer OTHER ==
[~2024-01-28] MED LIST changes: +FLUTISP NARES; +LIDO1PAD TOP
[2024-01-28 10:57] LABS: APPEARANCE, URINE HAZY (CLEAR); BACTERIA, URINE AUTO NEGATIVE (NEGATIVE); BILIRUBIN, URINE AUTO NEGATIVE (NEGATIVE); BLOOD, URINE BLOOD NEGATIVE (NEGATIVE); COLOR, URINE AMBER (YELLOW); GLUCOSE, URINE (UA) AUTO NEGATIVE (NEGATIVE); KETONE, URINE AUTO TRACE mg/dL (NEGATIVE); LEUKOCYTE ESTERASE, URINE AUTO NEGATIVE (NEGATIVE); MUCUS, URINE SMALL (NEGATIVE); NITRITE, URINE AUTO NEGATIVE (NEGATIVE); PROTEIN, URINE AUTO NEGATIVE (NEGATIVE); RBC, URINE AUTO 1 /HPF (0-3); SPECIFIC GRAVITY URINE AUTO 1.018 (1.002-1.035); SQUAMOUS EPITHELIAL CELL UR AU 0 /HPF (0-6); WBC, URINE AUTO 1 /HPF (0-3)
== END ==
LOC: M SMT 10:00
PROVIDERS: ATTEND Urology
DX: R39.9 Unspecified symptoms and signs involving the genitourinary system (principal)

== ENCOUNTER → 2024-02-19 | Outpatient (CLI) | payer OTHER ==
[~2024-02-19] MED LIST changes: +SULF400T14
== END ==
LOC: M SOG 07:51
PROVIDERS: ATTEND Physician Assistant
DX: S72.001D Fracture of unspecified part of neck of right femur, subsequent encounter for closed fracture with routine healing (principal)

== ENCOUNTER → 2024-07-14 | Outpatient (REF) | payer OTHER ==
[~2024-07-14] MED LIST changes: +GABA-1172 PO; -GABA-282 PO
[2024-07-14 13:32] LABS: APPEARANCE, URINE HAZY (CLEAR); BACTERIA, URINE AUTO 1+ (NEGATIVE); BILIRUBIN, URINE AUTO NEGATIVE (NEGATIVE); BLOOD, URINE BLOOD NEGATIVE (NEGATIVE); COLOR, URINE YELLOW (YELLOW); GLUCOSE, URINE (UA) AUTO NEGATIVE (NEGATIVE); KETONE, URINE AUTO NEGATIVE (NEGATIVE); LEUKOCYTE ESTERASE, URINE AUTO 2+ (NEGATIVE); MUCUS, URINE SMALL (NEGATIVE); NITRITE, URINE AUTO POSITIVE (NEGATIVE); PROTEIN, URINE AUTO NEGATIVE (NEGATIVE); RBC, URINE AUTO 3 /HPF (0-3); SPECIFIC GRAVITY URINE AUTO 1.012 (1.002-1.035); SQUAMOUS EPITHELIAL CELL UR AU 0 /HPF (0-6); UROBILINOGEN, URINE AUTO 0.2 mg/dL (0.0-2.0); WBC, URINE AUTO 51 /HPF (0-3)
== END ==
LOC: M SMT 12:48
PROVIDERS: ATTEND Physician Assistant
DX: R30.0 Dysuria (principal)

== ENCOUNTER → 2024-08-03 | Outpatient (REF) | payer OTHER ==
[2024-08-03 13:35] LABS: APPEARANCE, URINE HAZY (CLEAR); BACTERIA, URINE AUTO 1+ (NEGATIVE); BILIRUBIN, URINE AUTO NEGATIVE (NEGATIVE); BLOOD, URINE BLOOD NEGATIVE (NEGATIVE); CALCIUM OXALATE CRYSTALS LARGE; COLOR, URINE AMBER (YELLOW); GLUCOSE, URINE (UA) AUTO NEGATIVE (NEGATIVE); KETONE, URINE AUTO TRACE mg/dL (NEGATIVE); LEUKOCYTE ESTERASE, URINE AUTO 2+ (NEGATIVE); MUCUS, URINE SMALL (NEGATIVE); NITRITE, URINE AUTO POSITIVE (NEGATIVE); PROTEIN, URINE AUTO NEGATIVE (NEGATIVE); RBC, URINE AUTO 0 /HPF (0-3); SPECIFIC GRAVITY URINE AUTO 1.016 (1.002-1.035); SQUAMOUS EPITHELIAL CELL UR AU 1 /HPF (0-6); UROBILINOGEN, URINE AUTO 0.2 mg/dL (0.0-2.0); WBC, URINE AUTO 42 /HPF (0-3)
== END ==
LOC: M SMT 12:53
PROVIDERS: ATTEND Physician Assistant
DX: R39.9 Unspecified symptoms and signs involving the genitourinary system (principal)

== ENCOUNTER → 2024-09-29 | Outpatient (CLI) | payer OTHER ==
[~2024-09-29] MED LIST changes: +DULO1CAP6 PO
== END ==
LOC: M RAD 10:19
PROVIDERS: ATTEND Registered Nurse
DX: R10.9 Unspecified abdominal pain (principal); Z96.641 Presence of right artificial hip joint; K42.9 Umbilical hernia without obstruction or gangrene; K57.30 Diverticulosis of large intestine without perforation or abscess without bleeding

== ENCOUNTER 2024-11-30 09:10 | Day surgery (SDC) | payer OTHER ==
[~2024-11-30] VITALS: Ht 162.6 cm; Wt 61.7 kg
[~2024-11-30 09:10] MED LIST changes: +DICY-61 PO
[2024-11-30] MEDS ORDERED: propofoL 200 MG/20 ML VIAL As Ordered ONE (09:22)
[2024-11-30] MEDS ORDERED: LIDOCAINE 2% 100MG/5ML SDV (FOR ANES.) As Ordered ONE (09:22)
[2024-11-30] MEDS ORDERED: GLYCOPYRROLATE INJ 0.2 MG/ML 2 ML VIAL As Ordered ONE (09:47)
[2024-11-30] MEDS ORDERED: ONDANSETRON 4MG 2ML VIAL As Ordered ONE (09:52)
[2024-11-30 11:27] VITALS: TEMP 97.6
[2024-11-30 11:44] VITALS: BP 121/86; O2SAT 99
== END 2024-11-30 11:49 | disposition home or self-care (01) ==
LOC: M OPP 09:10
PROVIDERS: ATTEND Internal Medicine Gastroenterology
DX: D12.2 Benign neoplasm of ascending colon (principal); K57.30 Diverticulosis of large intestine without perforation or abscess without bleeding; K64.8 Other hemorrhoids; R10.84 Generalized abdominal pain; R19.4 Change in bowel habit; K44.9 Diaphragmatic hernia without obstruction or gangrene; R14.0 Abdominal distension (gaseous); R19.7 Diarrhea, unspecified; Z79.51 Long term (current) use of inhaled steroids; Z79.899 Other long term (current) drug therapy; F17.210 Nicotine dependence, cigarettes, uncomplicated
CPT/HCPCS: 43239; 45385; 88305; J1596; J2405

== ENCOUNTER 2024-12-08 12:10 | Emergency (ER) | payer OTHER ==
[~2024-12-08] VITALS: Ht 162.6 cm; Wt 62.3 kg
[2024-12-08] MEDS: ACETAMINOPHEN 500 MG TAB PO ONE (13:51)
[2024-12-08 14:21] VITALS: BP 137/75; TEMP 98.4; O2SAT 98
== END 2024-12-08 14:28 | disposition home or self-care (01) ==
LOC: M ED 12:10
DX: S52.125A Nondisplaced fracture of head of left radius, initial encounter for closed fracture (principal); S52.615A Nondisplaced fracture of left ulna styloid process, initial encounter for closed fracture; W01.198A Fall on same level from slipping, tripping and stumbling with subsequent striking against other object, initial encounter; F17.200 Nicotine dependence, unspecified, uncomplicated; Y92.007 Garden or yard of unspecified non-institutional (private) residence as the place of occurrence of the external cause; Y93.89 Activity, other specified; Y99.9 Unspecified external cause status; Z79.899 Other long term (current) drug therapy; Z87.39 Personal history of other diseases of the musculoskeletal system and connective tissue

== ENCOUNTER → 2024-12-08 | Outpatient (CLI) | payer OTHER | LOC: M SOG 07:14 | PROVIDERS: ATTEND Orthopaedic Surgery | DX: S72.001D Fracture of unspecified part of neck of right femur, subsequent encounter for closed fracture with routine healing (principal) ==

== ENCOUNTER → 2024-12-09 | Outpatient (CLI) | payer OTHER | LOC: M SOG 07:00 | PROVIDERS: ATTEND Physician Assistant | DX: S72.001D Fracture of unspecified part of neck of right femur, subsequent encounter for closed fracture with routine healing (principal) ==

== ENCOUNTER → 2024-12-09 | Outpatient (REF) | payer OTHER ==
[2024-12-09 15:57] LABS: APPEARANCE, URINE HAZY (CLEAR); BACTERIA, URINE AUTO 1+ (NEGATIVE); BILIRUBIN, URINE AUTO NEGATIVE (NEGATIVE); BLOOD, URINE BLOOD NEGATIVE (NEGATIVE); CALCIUM OXALATE CRYSTALS SMALL; COLOR, URINE YELLOW (YELLOW); GLUCOSE, URINE (UA) AUTO NEGATIVE (NEGATIVE); KETONE, URINE AUTO TRACE mg/dL (NEGATIVE); LEUKOCYTE ESTERASE, URINE AUTO TRACE (NEGATIVE); MUCUS, URINE SMALL (NEGATIVE); NITRITE, URINE AUTO NEGATIVE (NEGATIVE); PROTEIN, URINE AUTO NEGATIVE (NEGATIVE); RBC, URINE AUTO 4 /HPF (0-3); SPECIFIC GRAVITY URINE AUTO 1.018 (1.002-1.035); SQUAMOUS EPITHELIAL CELL UR AU 1 /HPF (0-6); WBC, URINE AUTO 3 /HPF (0-3)
== END ==
LOC: M SMT 15:09
PROVIDERS: ATTEND Urology
DX: Z87.440 Personal history of urinary (tract) infections (principal)

== ENCOUNTER → 2025-02-24 | Outpatient (CLI) | payer OTHER | LOC: M SOG 07:02 | PROVIDERS: ATTEND Physician Assistant | DX: M25.532 Pain in left wrist (principal); M25.531 Pain in right wrist; S52.502D Unspecified fracture of the lower end of left radius, subsequent encounter for closed fracture with routine healing; S52.612D Displaced fracture of left ulna styloid process, subsequent encounter for closed fracture with routine healing; S62.346A Nondisplaced fracture of base of fifth metacarpal bone, right hand, initial encounter for closed fracture; X58.XXXA Exposure to other specified factors, initial encounter; Y92.9 Unspecified place or not applicable; Y93.9 Activity, unspecified; Y99.9 Unspecified external cause status ==